=== PATIENT | male | born 1990 | race American Indian/Alaskan Native ===

== ENCOUNTER 2017-02-20 19:24 | Inpatient (IN) | payer OTHER ==
--- NOTE | 2017-02-20 21:08 | C.PDOC ---
History Of Present Illness Patient presents to the ER with a complaint of a RUQ pressure/squeezing pain for the past 3 days that radiates to the lower back, associated with a subjective fever. Patient states eating and drinking worsens the pain but the pain is the worse when he does not eat or drink; he came in today because he felt he could not tolerate water. Prior to onset of symptoms, patient was having 4-5 episodes of diarrhea a day. Patient also notes he had some blood streaked stool this morning. Denies nausea, vomiting, SOB, or chest pain. Time Seen by Provider: 02/20/17 21:08 Chief Complaint (Nursing): Abdominal Pain History Per: Patient History/Exam Limitations: no limitations Onset/Duration Of Symptoms: Days Current Symptoms Are (Timing): Still Present Context: Other Severity: Moderate Pain Scale Rating Of: 4 Location Of Pain/Discomfort: RUQ Radiation Of Pain To:: None Quality Of Discomfort: Pressure, Other (Squeezing) Associated Symptoms: Fever (Subjective). denies: Nausea, Vomiting, Chest Pain, Other (SOB) Exacerbating Factors: None Alleviating Factors: None Recent travel outside of the [place]: No Additional History Per: Patient Past Medical History Reviewed: Historical Data, Nursing Documentation, Vital Signs Vital Signs: Last Vital Signs Temp 99.7 F H 02/20/17 19:45 Pulse 87 02/20/17 19:45 Resp 16 02/20/17 19:45 BP 124/80 02/20/17 19:45 Pulse Ox 97 02/20/17 22:12 - Medical History PMH: Asthma Family History: States: No Known Family Hx - Social History Hx Alcohol Use: Yes Hx Substance Use: Yes - Immunization History Hx Tetanus Toxoid Vaccination: No Hx Influenza Vaccination: No Hx Pneumococcal Vaccination: No Review Of Systems Constitutional: Positive for: Fever (Subjective). Negative for: Chills Cardiovascular: Negative for: Chest Pain Respiratory: Negative for: Shortness of Breath Gastrointestinal: Positive for: Other (blood streaked stools). Negative for: Nausea, Vomiting Physical Exam - Physical Exam Appears: Non-toxic, No Acute Distress Skin: Warm, Dry Head: Normacephalic Eye(s): bilateral: Normal Inspection Oral Mucosa: Moist Neck: Supple Chest: Symmetrical, No Tenderness Cardiovascular: Rhythm Regular Respiratory: No Rales, No Rhonchi, No Wheezing Gastrointestinal/Abdominal: Soft, Tenderness (Bilateral upper quadrant, more to right), No Guarding, No Rebound Rectal: Normal Exam, No Heme Positive, Heme Negative, Maroon Stool, No Hemorrhoids, Other (No fissures) Back: Normal Inspection Extremity: Normal ROM Extremity: Bilateral: Atraumatic, Normal Color And Temperature Pulses: Left Dorsalis Pedis: Normal, Right Dorsalis Pedis: Normal Neurological/Psych: Oriented x3 Gait: Steady ED Course And Treatment - Laboratory Results Result Diagrams: 02/20/17 21:49 02/20/17 21:49 O2 Sat by Pulse Oximetry: 97 (Room air) Pulse Ox Interpretation: Normal Progress Note: Blood work and urinalysis ordered. Pepcid and toradol administered. Disposition Discussed With Dr.: Ariel Lipscomb Comment: accepted the pt onhis service and took over the care at 12:21 am Doctor Will See Patient In The: ED Counseled Patient/Family Regarding: Studies Performed, Diagnosis - Disposition Disposition: HOSPITALIZED Disposition Time: 21:08 Condition: FAIR Forms: [employer] (I[place]ic) - POA Present On Arrival: None - Clinical Impression Clinical Impression: Abdominal pain, Acute pancreatitis - Scribe Statement The provider has reviewed the documentation as recorded by the Scribe Thang Engel All medical record entries made by the Scribe were at my direction and personally dictated by me. I have reviewed the chart and agree that the record accurately reflects my personal performance of the history, physical exam, medical decision making, and the department course for this patient. I have also personally directed, reviewed, and agree with the discharge instructions and disposition. Decision To Admit - Pt Status Changed To: Hospital Disposition Of: Inpatient - Admit Certification Admit to Inpatient:: After my assessment, the patient will require hospitalization for at least two midnights. This is because of the severity of symptoms shown, intensity of services needed, and/or the medical risk in this patient being treated as an outpatient. - InPatient: Physician Admission Certification:: After my assessment, the patient will require hospitalization for at least two midnights. This is because of the severity of symptoms shown, intensity of services needed, and/or the medical risk in this patient being treated as an outpatient. - . Bed Request Type: Regular Admitting Physician: Ariel Lipscomb Patient Diagnosis: Abdominal pain, Acute pancreatitis
[2017-02-20 21:58] LABS: BASO % 0.2 % (0.0-2.0); EOS # 0.1 K/uL (0.0-0.7); EOS % 1.5 % (0.0-4.0); LYMPH # 1.1 K/uL (1.0-4.3); LYMPH % 14.6 % (20.0-40.0); MEAN CELL VOLUME 79.5 fL (80.0-94.0); MEAN CORPUSCULAR HEMOGLOBIN 27.6 pg (27.0-31.0); MEAN CORPUSCULAR HGB CONC 34.7 g/dL (33.0-37.0); MEAN PLATELET VOLUME 8.5 fL (7.2-11.7); MONO # 1.1 K/uL (0.0-0.8); MONO % 14.3 % (0.0-10.0); NEUT # 5.4 K/uL (1.8-7.0); NEUT % 69.4 % (50.0-75.0); RBC 5.07 Mil/uL (4.40-5.90); RED CELL DISTRIBUTION WIDTH 14.1 % (11.5-14.5); WHITE BLOOD COUNT 7.8 K/uL (4.8-10.8)
[2017-02-20 22:05] LABS: INR 1.2; PROTHROMBIN TIME 13.3 SECONDS (9.7-12.2)
[2017-02-20 22:11] LABS: ALBUMIN 4.2 g/dL (3.5-5.0); ALT/SGPT 125 U/L (21-72); AST/SGOT 88 U/L (17-59); BLOOD UREA NITROGEN 7 mg/dL (9-20); CALCIUM 8.6 mg/dl (8.6-10.4); GFR AFRICAN-AMERICAN > 60; GFR NON-AFRICAN AMERICAN > 60; LIPASE 875 U/L (23-300)
[2017-02-20] MEDS ORDERED: Iohexol 300 100 ML IJ ONE (22:29)
--- NOTE | 2017-02-20 23:30 | CT ---
EXAM: CT Abdomen and Pelvis With Intravenous Contrast CLINICAL HISTORY: 26 years old, male; Pain; Abdominal pain; Additional info: Abd pain, elevated lipase and liver enz TECHNIQUE: Axial computed tomography images of the abdomen and pelvis with intravenous contrast. All CT scans at this facility use one or more dose reduction techniques, viz.: automated exposure control; ma/kV adjustment per patient size (including targeted exams where dose is matched to indication; i.e. head); or iterative reconstruction technique. Coronal and sagittal reformatted images were created and reviewed. CONTRAST: 100 mL of [id number] administered intravenously. COMPARISON: No relevant prior studies available. FINDINGS: Lower thorax: Minimal atelectasis/scarring. ABDOMEN: Liver: Unremarkable. No mass. Gallbladder and bile ducts: No calcified stones. No ductal dilation. Pancreas: Mild stranding about pancreas. No definite pancreatic necrosis. No discrete peripancreatic collection. Spleen: No splenomegaly. Adrenals: No mass. Kidneys and ureters: No mass. No hydronephrosis. Stomach and bowel: No definite mural thickening. No obstruction. Appendix: Normal caliber. No inflammation. PELVIS: Bladder: Unremarkable. Reproductive: Unremarkable as visualized. ABDOMEN and PELVIS: Intraperitoneal space: No significant fluid collection. No free air. Bones/joints: No acute fracture. Soft tissues: Tiny umbilical hernia containing fat. Vasculature: Patent splenic artery and vein. No aneurysm. Lymph nodes: Several subcentimeter short axis mesenteric lymph nodes, nonspecific. IMPRESSION: 1. Acute pancreatitis. 2. Incidental/non-acute findings are described above.
[2017-02-21] MEDS: Sodium Chloride 0.9% 1,000 ML IV SCH ×6 (01:53→21:46)
--- NOTE | 2017-02-21 02:57 | CP.PCM.HP ---
<Addy Zepeda - Last Filed: 02/21/17 04:38> History of Present Illness - History of Present Illness History of Present Illness: PGY-1 H&P for Dr. Lipscomb CC: "abdominal pain" This is a 26 year old male with no significant PMHx who presents complaining of abdominal pain. It is described as a pressure in the epigastric region that radiates to the right upper quadrant. It began on Sunday and has progressively worsened since then. Pain is exacerbated after eating or drinking. As a result, he does not have an appetite currently. Denies relieving factors besides avoidance of anything by mouth. Patient states that for a few days before the pain started, he was having episodes of loose stools 4-5 times per day. Since the onset of pain, patient has now been experiencing constipation. Last BM was yesterday morning described as mucoid with bits of dark red tinged in it. Patient enjoys eating spicy foods whenever he can. Patient denies regularly taking aspirin or NSAIDs. PMHx: Left MCL tear PSHx: denies Allergies: shellfish Social: Former smoker smoking 1 cigar daily for 7 years. Quit 1 year prior. Social drinker about once a month. Smokes marijuana 3-4 times weekly. Family Hx: Diabetes in the extended family Denies PMD or home meds. Present on Admission - Present on Admission Any Indicators Present on Admission: No Review of Systems - Constitutional Constitutional: absent: Chills, Fever - EENT Eyes: absent: Change in Vision Ears: absent: Decreased Hearing Nose/Mouth/Throat: absent: Nasal Congestion - Cardiovascular Cardiovascular: absent: Chest Pain - Respiratory Respiratory: absent: Cough, Dyspnea - Gastrointestinal Gastrointestinal: Abdominal Pain (as per HPI), Bloating, Constipation, Other ( tinges of dark red in his stool). absent: Diarrhea, Nausea, Vomiting - Musculoskeletal Musculoskeletal: absent: Back Pain - Integumentary Integumentary: absent: Rash - Neurological Neurological: absent: Dizziness, Weakness - Psychiatric Psychiatric: absent: Anxiety - Endocrine Endocrine: absent: Fatigue, Palpitations Past Patient History - Past Social History Smoking Status: Former Smoker - PULMONARY Hx Asthma: Yes - PSYCHIATRIC Hx Substance Use: Yes - SURGICAL HISTORY Hx Surgeries: No - ANESTHESIA Hx Anesthesia: No Meds Allergies/Adverse Reactions: Allergies Allergy/AdvReac Type Severity Reaction Status Date / Time shellfish derived Allergy Verified 02/20/17 19:50 Physical Exam - Constitutional Appears: No Acute Distress - Head Exam Head Exam: ATRAUMATIC, NORMOCEPHALIC - Eye Exam Eye Exam: EOMI, PERRL - ENT Exam ENT Exam: Mucous Membranes Moist - Respiratory Exam Respiratory Exam: Clear to Auscultation Bilateral. absent: Rales, Rhonchi, Wheezes - Cardiovascular Exam Cardiovascular Exam: REGULAR RHYTHM, +S1, +S2 - GI/Abdominal Exam GI & Abdominal Exam: Normal Bowel Sounds, Soft, Tenderness (mild tenderness in the epigastric region). absent: Firm, Guarding Additional comments: Weakly positive Hernandez's sign elicited - Extremities Exam Extremities exam: Positive for: pedal pulses present. Negative for: pedal edema , tenderness - Neurological Exam Neurological exam: Alert, CN II-XII Intact, Oriented x3 - Psychiatric Exam Psychiatric exam: Normal Affect, Normal Mood - Skin Skin Exam: Dry, Intact, Normal Color, Warm Results - Vital Signs Recent Vital Signs: Last Vital Signs Temp 98.4 F 02/21/17 01:51 Pulse 83 02/21/17 01:51 Resp 20 02/21/17 01:51 BP 139/79 02/21/17 01:51 Pulse Ox 97 02/21/17 01:51 - Labs Result Diagrams: 02/20/17 21:49 02/20/17 21:49 Labs: Laboratory Results - last 24 hr 02/20/17 02/20/17 02/20/17 21:49 21:49 21:49 WBC 7.8 RBC 5.07 Hgb 14.0 Hct 40.3 MCV 79.5 L MCH 27.6 MCHC 34.7 RDW 14.1 Plt Count 358 MPV 8.5 Neut % (Auto) 69.4 Lymph % (Auto) 14.6 L Pope % (Auto) 14.3 H Eos % (Auto) 1.5 Baso % (Auto) 0.2 Neut # 5.4 Lymph # 1.1 Pope # 1.1 H Eos # 0.1 Baso # 0.0 PT 13.3 H INR 1.2 APTT 34 Sodium 134 Potassium 3.6 Chloride 99 Carbon Dioxide 25 Anion Gap 13 BUN 7 L Creatinine 0.9 Est GFR ( Amer) > 60 Est GFR (Non-Af Amer) > 60 Random Glucose 95 Calcium 8.6 Total Bilirubin 1.0 AST 88 H ALT 125 H Alkaline Phosphatase 207 H Total Protein 8.6 H Albumin 4.2 Globulin 4.3 H Albumin/Globulin Ratio 1.0 Lipase 875 H Stool Occult Blood 02/20/17 21:49 WBC RBC Hgb Hct MCV MCH MCHC RDW Plt Count MPV Neut % (Auto) Lymph % (Auto) Pope % (Auto) Eos % (Auto) Baso % (Auto) Neut # Lymph # Pope # Eos # Baso # PT INR APTT Sodium Potassium Chloride Carbon Dioxide Anion Gap BUN Creatinine Est GFR ( Amer) Est GFR (Non-Af Amer) Random Glucose Calcium Total Bilirubin AST ALT Alkaline Phosphatase Total Protein Albumin Globulin Albumin/Globulin Ratio Lipase Stool Occult Blood Negative Assessment & Plan - Assessment and Plan (Free Text) Plan: Acute Pancreatitis As evidenced by stranding around the pancreas in Abdominal CT as well as elevated lipase. Although stones were not seen on CT scan, suspicion prompted ordering an abdominal ultrasound to assess NPO for now Aggressive Hydration NS 250cc/hr f/u Lipid panel Per Hortense's criteria on admission, severe pancreatitis unlikely, 1% predicted mortality. Per patient, he has been having dark red tinged stools intermittently. For this reason, despite stool occult negative, we elected not to use IV NSAIDs and instead started on Morphine 1 mg IV Q6 prn pain. f/u repeat stool occult blood Prophylactic Measure Pepcid 20 mg IV BID SCDs Case DW Dr. Deisi Zepeda PGY-1 <Ariel Lipscomb - Last Filed: 02/21/17 06:23> Results - Vital Signs Recent Vital Signs: Last Vital Signs Temp 98.4 F 02/21/17 01:51 Pulse 83 02/21/17 01:51 Resp 20 02/21/17 01:51 BP 139/79 02/21/17 01:51 Pulse Ox 97 02/21/17 01:51 - Labs Result Diagrams: 02/20/17 21:49 02/20/17 21:49 Labs: Laboratory Results - last 24 hr 02/20/17 02/20/17 02/20/17 21:49 21:49 21:49 WBC 7.8 RBC 5.07 Hgb 14.0 Hct 40.3 MCV 79.5 L MCH 27.6 MCHC 34.7 RDW 14.1 Plt Count 358 MPV 8.5 Neut % (Auto) 69.4 Lymph % (Auto) 14.6 L Pope % (Auto) 14.3 H Eos % (Auto) 1.5 Baso % (Auto) 0.2 Neut # 5.4 Lymph # 1.1 Pope # 1.1 H Eos # 0.1 Baso # 0.0 PT 13.3 H INR 1.2 APTT 34 Sodium 134 Potassium 3.6 Chloride 99 Carbon Dioxide 25 Anion Gap 13 BUN 7 L Creatinine 0.9 Est GFR ( Amer) > 60 Est GFR (Non-Af Amer) > 60 Random Glucose 95 Calcium 8.6 Total Bilirubin 1.0 AST 88 H ALT 125 H Alkaline Phosphatase 207 H Total Protein 8.6 H Albumin 4.2 Globulin 4.3 H Albumin/Globulin Ratio 1.0 Lipase 875 H Stool Occult Blood 02/20/17 21:49 WBC RBC Hgb Hct MCV MCH MCHC RDW Plt Count MPV Neut % (Auto) Lymph % (Auto) Pope % (Auto) Eos % (Auto) Baso % (Auto) Neut # Lymph # Pope # Eos # Baso # PT INR APTT Sodium Potassium Chloride Carbon Dioxide Anion Gap BUN Creatinine Est GFR ( Amer) Est GFR (Non-Af Amer) Random Glucose Calcium Total Bilirubin AST ALT Alkaline Phosphatase Total Protein Albumin Globulin Albumin/Globulin Ratio Lipase Stool Occult Blood Negative Assessment & Plan - Date & Time Date: 02/21/17 (I have seen and examined the patient. I agree with the findings and plan of care as documented by Dr. Zepeda. Patient with acute pancreatitis. NPO. IVF. Symptomatic treatment. Monitor for acute changes.) Time: 06:22 Attending/Attestation - Attestation I have personally seen and examined this patient.: Yes I have fully participated in the care of the patient.: Yes I have reviewed all pertinent clinical information: Yes
--- NOTE | 2017-02-21 08:36 | US ---
HISTORY: r/o gallstones COMPARISON: None. TECHNIQUE: Sonographic evaluation of the abdomen. FINDINGS: LIVER: Measures 16.0 cm. Diffusely increased echogenicity of the liver parenchyma. Consistent with fatty infiltration. No focal mass. Smooth contour. No biliary dilatation. GALLBLADDER: Unremarkable. No gallstones. COMMON BILE DUCT: Measures 3 mm. No stones. No dilatation. PANCREAS: Unremarkable as visualized. No mass. No ductal dilatation. RIGHT KIDNEY: Measures 10.7cm. Normal echogenicity. No calculus, mass, or hydronephrosis. LEFT KIDNEY: Measures 10.9cm. Normal echogenicity. No calculus, mass, or hydronephrosis. SPLEEN: Normal in size and contour. No mass. AORTA: No aneurysmal dilatation. IVC: Unremarkable. OTHER FINDINGS: None. IMPRESSION: Fatty liver. No evidence of cholelithiasis or cholecystitis.
[2017-02-21 09:28] LABS: BASO % 0.3 % (0.0-2.0); EOS # 0.1 K/uL (0.0-0.7); EOS % 1.7 % (0.0-4.0); HEMOGLOBIN 12.5 g/dL (12.0-18.0); LYMPH % 15.5 % (20.0-40.0); MEAN CELL VOLUME 80.7 fL (80.0-94.0); MEAN CORPUSCULAR HEMOGLOBIN 27.2 pg (27.0-31.0); MEAN CORPUSCULAR HGB CONC 33.7 g/dL (33.0-37.0); MEAN PLATELET VOLUME 8.6 fL (7.2-11.7); MONO % 15.4 % (0.0-10.0); NEUT # 4.4 K/uL (1.8-7.0); NEUT % 67.1 % (50.0-75.0); RBC 4.59 Mil/uL (4.40-5.90); RED CELL DISTRIBUTION WIDTH 13.5 % (11.5-14.5); WHITE BLOOD COUNT 6.5 K/uL (4.8-10.8)
[2017-02-21 10:02] LABS: ALBUMIN 3.6 g/dL (3.5-5.0); ALT/SGPT 94 U/L (21-72); AST/SGOT 57 U/L (17-59); BLOOD UREA NITROGEN 8 mg/dL (9-20); CALCIUM 8.1 mg/dl (8.6-10.4); GFR AFRICAN-AMERICAN > 60; GFR NON-AFRICAN AMERICAN > 60; HDL CHOLESTEROL 30 mg/dL (30-70)
[2017-02-21 10:16] LABS: LDL CHOLESTEROL 112 mg/dL (0-129)
[2017-02-21 10:38] LABS: HEPATITIS B SURFACE AG NEGATIVE (NEGATIVE)
[2017-02-21 10:43] LABS: HEPATITIS A IGM NEGATIVE (NEGATIVE); HEPATITIS B CORE AB Negative (NEGATIVE)
[2017-02-21 10:55] LABS: HEPATITIS C ANTIBODY Negative (NEGATIVE)
--- NOTE | 2017-02-21 16:00 | CP.PCM.PN ---
<Corine Leonardo - Last Filed: 02/21/17 17:08> Subjective - Date & Time of Evaluation Date of Evaluation: 02/21/17 Time of Evaluation: 17:08 - Subjective Subjective: Patient seen and examined. Denies fevers or chills. patient states abdominal pain has improved. Has small appetite Objective - Vital Signs/Intake and Output Vital Signs (last 24 hours): Temp Pulse Resp BP Pulse Ox 98.3 F 83 20 115/72 98 02/21/17 08:28 02/21/17 08:28 02/21/17 08:28 02/21/17 08:28 02/21/17 08:28 Intake and Output: 02/21/17 02/21/17 06:59 18:59 Intake Total 3500 Balance 3500 - Medications Medications: Current Medications Famotidine (Pepcid) 20 mg IVP Q12 [facility] Last Admin: 02/21/17 09:43 Dose: 20 mg Sodium Chloride (Sodium Chloride 0.9%) 1,000 mls @ 250 mls/hr IV .Q4H [facility] Last Admin: 02/21/17 14:13 Dose: 250 mls/hr Morphine Sulfate (Morphine) 1 mg IV Q6 PRN PRN Reason: Pain, severe (8-10) - Labs Labs: 02/21/17 09:19 02/21/17 09:19 PT 13.3 SECONDS (9.7-12.2) H 02/20/17 21:49 INR 1.2 02/20/17 21:49 APTT 34 SECONDS (21-34) 02/20/17 21:49 - Constitutional Appears: Well, Non-toxic, No Acute Distress - Head Exam Head Exam: ATRAUMATIC, NORMAL INSPECTION, NORMOCEPHALIC - Eye Exam Eye Exam: EOMI, Normal appearance - ENT Exam ENT Exam: Mucous Membranes Moist - Respiratory Exam Respiratory Exam: Clear to Ausculation Bilateral, NORMAL BREATHING PATTERN. absent: Rales, Rhonchi, Wheezes - Cardiovascular Exam Cardiovascular Exam: RRR, +S1, +S2 - GI/Abdominal Exam GI & Abdominal Exam: Soft, Tenderness (Epigastric and RUQ), Normal Bowel Sounds. absent: Bruit, Distended, Firm, Guarding, Rigid, Organomegaly - Extremities Exam Extremities Exam: Normal Capillary Refill. absent: Pedal Edema - Neurological Exam Neurological Exam: Alert, Oriented x3 - Psychiatric Exam Psychiatric exam: Normal Affect, Normal Mood - Skin Skin Exam: Dry, Intact, Normal Color, Warm Assessment and Plan - Assessment and Plan (Free Text) Assessment: 26 year old with no pertieent PMHx admitted for evaluation and treatment of Acute Pancreatitis. Plan: Acute Pancreatitis CT Abd/Pelvis (02/21/16): Acute pancreaitis and small umbilical hernia Abd US (02/22/16): Fatty Liver NPO for now. Advance diet as tolerated Aggressive Hydration NS 250cc/hr Lipid Panel - WNL Per Nasreen's criteria on admission, severe pancreatitis unlikely, 1% predicted mortality. Morphine 1 mg IV Q6 prn pain. f/u repeat stool occult blood: PENDING Consider Rectal Exam although done in E.R Blood in Stool -Rectal Exam performed in ED. Exam was Normal -Consider Repeat Rectal -F/U on repeat Stool Occult Blood Prophylactic Measure Pepcid 20 mg IV BID SCDs Case DW Dr. Cindy Leonardo- PGY-1 <Jessica White V - Last Filed: 02/21/17 23:26> Objective - Vital Signs/Intake and Output Vital Signs (last 24 hours): Temp Pulse Resp BP Pulse Ox 98.4 F 88 20 135/74 97 02/21/17 16:00 02/21/17 16:00 02/21/17 16:00 02/21/17 16:00 02/21/17 16:00 Intake and Output: 02/21/17 02/22/17 18:59 06:59 Intake Total 3500 2000 Output Total 700 Balance 3500 1300 - Medications Medications: Current Medications Famotidine (Pepcid) 20 mg IVP Q12 [facility] Last Admin: 02/21/17 21:31 Dose: 20 mg Sodium Chloride (Sodium Chloride 0.9%) 1,000 mls @ 250 mls/hr IV .Q4H [facility] Last Admin: 02/21/17 21:46 Dose: 250 mls/hr Lidocaine (Lidoderm) 1 ea TD Q24H [facility] Last Admin: 02/21/17 21:44 Dose: 1 ea Morphine Sulfate (Morphine) 1 mg IV Q6 PRN PRN Reason: Pain, severe (8-10) Last Admin: 02/21/17 18:00 Dose: 1 mg - Labs Labs: 02/21/17 09:19 02/21/17 09:19 PT 13.3 SECONDS (9.7-12.2) H 02/20/17 21:49 INR 1.2 02/20/17 21:49 APTT 34 SECONDS (21-34) 02/20/17 21:49 Attending/Attestation - Attestation I have personally seen and examined this patient.: Yes I have fully participated in the care of the patient.: Yes I have reviewed all pertinent clinical information, including history, physical exam and plan: Yes Notes (Text): Patient seen, examined and case discussed with day-time resident. Patient reports he has had abdominal pain since Sunday, which he reports was 10/ 10, but today pain is 5/10. Patient reports he occasional drinks, about Xmas he drank one beer and 2 shots of liquor, he eats take out food mainly from [employer], and he has been taking Motrin over the counter. Patient denies family history of colon cancer. Patient reports nausea is better. Patient reports when he went to bathroom today, stool appeared yellow/green/brown but denies any BRBPR. Patient reports he noticed his stool has redness to it about a week ago. Patient reports he was drinking fruit punch. I advised patient to ask the nurse next time he goes to check what his stool looks like. Assessment/Plan 1) Acute Pancreatitis * Ransons Criteria: 0 * CT Abd/Pelvis (02/21/16): Acute pancreatitis and small umbilical hernia * Abd US (02/22/16): Fatty Liver; no gallstones noted * NPO for now. Advance diet as tolerated * Aggressive Hydration NS 250cc/hr * Lipid Panel - WNL * Morphine 1 mg IV Q6 prn pain. * f/u repeat stool occult blood: PENDING * Note: patient did have rectal exam performed day of admission by ED staff. Patient does not need repeat rectal. Order for stool occult blood X3 2) Blood in Stool * Rectal Exam performed in ED. Exam was Normal * H/H is stable * stool occult blood 02/20/17: negative * Pending stool cultures 3) Transaminitis * Abdominal US completed * LFTS are downtrending * Hepatitis panel: negative 4) Prophylactic Measure * Pepcid 20 mg IV BID * SCDs * IV fluids * NPO and advance when tolerates
[2017-02-21] MEDS ORDERED: Lidocaine 5% Patch TD SCH ×2 (20:56→21:00)
[2017-02-21] MEDS: Lidocaine 5% Patch TD SCH (21:44)
[2017-02-21 22:53] LABS: URINE BILIRUBIN NEGATIVE (NEGATIVE); URINE BLOOD NEGATIVE (NEGATIVE); URINE CLARITY Clear (Clear); URINE COLOR Yellow (YELLOW); URINE GLUCOSE (UA) 1+ mg/dL (Normal); URINE LEUKOCYTE ESTERASE NEG Leu/uL (Negative); URINE NITRATE NEGATIVE (NEGATIVE); URINE PROTEIN 2+ mg/dL (NEGATIVE); URINE UROBILINOGEN NORMAL mg/dL (0.2-1.0)
[2017-02-22] MEDS: Sodium Chloride 0.9% 1,000 ML IV SCH ×5 (02:48→16:00)
[2017-02-22 07:46] LABS: BASO % 0.5 % (0.0-2.0); EOS # 0.1 K/uL (0.0-0.7); EOS % 1.1 % (0.0-4.0); HEMOGLOBIN 12.4 g/dL (12.0-18.0); LYMPH # 0.9 K/uL (1.0-4.3); LYMPH % 11.5 % (20.0-40.0); MEAN CORPUSCULAR HEMOGLOBIN 27.4 pg (27.0-31.0); MEAN CORPUSCULAR HGB CONC 34.2 g/dL (33.0-37.0); MEAN PLATELET VOLUME 8.5 fL (7.2-11.7); MONO # 1.2 K/uL (0.0-0.8); MONO % 16.1 % (0.0-10.0); NEUT # 5.5 K/uL (1.8-7.0); NEUT % 70.8 % (50.0-75.0); RBC 4.51 Mil/uL (4.40-5.90); RED CELL DISTRIBUTION WIDTH 13.7 % (11.5-14.5); WHITE BLOOD COUNT 7.7 K/uL (4.8-10.8)
[2017-02-22 08:30] LABS: ALBUMIN 3.7 g/dL (3.5-5.0); ALT/SGPT 78 U/L (21-72); AST/SGOT 44 U/L (17-59); BLOOD UREA NITROGEN 5 mg/dL (9-20); CALCIUM 8.2 mg/dl (8.6-10.4); GFR AFRICAN-AMERICAN > 60; GFR NON-AFRICAN AMERICAN > 60; LIPASE 1494 U/L (23-300); MAGNESIUM 1.8 mg/dL (1.6-2.3)
[2017-02-22] MEDS ORDERED: Lidocaine 5% Patch TD SCH (10:00)
--- NOTE | 2017-02-22 12:12 | CP.PCM.PN ---
<PanchojudyJeremíassuzie - Last Filed: 02/22/17 12:08> Subjective - Date & Time of Evaluation Date of Evaluation: 02/22/17 Time of Evaluation: 12:08 - Subjective Subjective: Patient has been seen and examined. No overnight events reported. Had bowel movement this morning. Denies Fever, nausea, or vomiting. States that stomach pain has reduced. Objective - Vital Signs/Intake and Output Vital Signs (last 24 hours): Temp Pulse Resp BP Pulse Ox 98.1 F 79 20 132/79 98 02/22/17 08:00 02/22/17 08:00 02/22/17 08:00 02/22/17 08:00 02/22/17 08:00 Intake and Output: 02/22/17 02/22/17 06:59 18:59 Intake Total 4000 Output Total 700 Balance 3300 - Medications Medications: Current Medications Famotidine (Pepcid) 20 mg IVP Q12 [facility] Last Admin: 02/22/17 09:39 Dose: 20 mg Sodium Chloride (Sodium Chloride 0.9%) 1,000 mls @ 250 mls/hr IV .Q4H [facility] Last Admin: 02/22/17 11:37 Dose: 250 mls/hr Lidocaine (Lidoderm) 1 ea TD Q24H [facility] Last Admin: 02/21/17 21:44 Dose: 1 ea Morphine Sulfate (Morphine) 1 mg IV Q6 PRN PRN Reason: Pain, severe (8-10) Last Admin: 02/22/17 01:40 Dose: 1 mg - Labs Labs: 02/22/17 07:39 02/22/17 07:39 PT 13.3 SECONDS (9.7-12.2) H 02/20/17 21:49 INR 1.2 02/20/17 21:49 APTT 34 SECONDS (21-34) 02/20/17 21:49 - Additional Findings Additional findings: - Constitutional Appears: Well, Non-toxic, No Acute Distress - Head Exam Head Exam: ATRAUMATIC, NORMAL INSPECTION, NORMOCEPHALIC - Eye Exam Eye Exam: EOMI, Normal appearance - ENT Exam ENT Exam: Mucous Membranes Moist - Respiratory Exam Respiratory Exam: Clear to Ausculation Bilateral, NORMAL BREATHING PATTERN. absent: Rales, Rhonchi, Wheezes - Cardiovascular Exam Cardiovascular Exam: RRR, +S1, +S2 - GI/Abdominal Exam GI & Abdominal Exam: Soft, Tenderness (Improved-Epigastric and RUQ), Normal Bowel Sounds. absent: Bruit, Distended, Firm, Guarding, Rigid, Organomegaly - Extremities Exam Extremities Exam: Normal Capillary Refill. absent: Pedal Edema - Neurological Exam Neurological Exam: Alert, Oriented x3 - Psychiatric Exam Psychiatric exam: Normal Affect, Normal Mood - Skin Skin Exam: Dry, Intact, Normal Color, Warm Assessment and Plan - Assessment and Plan (Free Text) Assessment: 26 year old with no pertieent PMHx admitted for evaluation and treatment of Acute Pancreatitis. Plan: Acute Pancreatitis CT Abd/Pelvis (02/21/16): Acute pancreaitis and small umbilical hernia Abd US (02/22/16): Fatty Liver Advance to diet to CLD Aggressive Hydration NS 250cc/hr if patient tolerates CLD reduce to 100mls/hr. Lipid Panel - WNL Per Nasreen's criteria on admission, severe pancreatitis unlikely, 1% predicted mortality. Morphine 1 mg IV Q6 prn pain. f/u repeat stool occult blood: Positive Patient has stable H/H. May need Outpatient colonoscopy. Consider Rectal Exam although done in E.R Hep Panel - NEGATIVE Stool C.Diff - NEGATIVE Blood in Stool -Rectal Exam performed in ED. Exam was Normal -Consider Repeat Rectal -F/U on repeat Stool Occult Blood Prophylactic Measure Pepcid 20 mg IV BID SCDs Case DW Dr. Cindy Leonardo- PGY-1 <Jessica White V - Last Filed: 02/22/17 13:04> Objective - Vital Signs/Intake and Output Vital Signs (last 24 hours): Temp Pulse Resp BP Pulse Ox 98.1 F 79 20 132/79 98 02/22/17 08:00 02/22/17 08:00 02/22/17 08:00 02/22/17 08:00 02/22/17 08:00 Intake and Output: 02/22/17 02/22/17 06:59 18:59 Intake Total 4000 Output Total 700 Balance 3300 - Medications Medications: Current Medications Famotidine (Pepcid) 20 mg IVP Q12 [facility] Last Admin: 02/22/17 09:39 Dose: 20 mg Sodium Chloride (Sodium Chloride 0.9%) 1,000 mls @ 250 mls/hr IV .Q4H [facility] Last Admin: 02/22/17 11:37 Dose: 250 mls/hr Lidocaine (Lidoderm) 1 ea TD Q24H [facility] Last Admin: 02/21/17 21:44 Dose: 1 ea Morphine Sulfate (Morphine) 1 mg IV Q6 PRN PRN Reason: Pain, severe (8-10) Last Admin: 02/22/17 01:40 Dose: 1 mg - Labs Labs: 02/22/17 07:39 02/22/17 07:39 PT 13.3 SECONDS (9.7-12.2) H 02/20/17 21:49 INR 1.2 02/20/17 21:49 APTT 34 SECONDS (21-34) 02/20/17 21:49 Attending/Attestation - Attestation I have personally seen and examined this patient.: Yes I have fully participated in the care of the patient.: Yes I have reviewed all pertinent clinical information, including history, physical exam and plan: Yes Notes (Text): Patient seen, examined, case discussed with medical stenographer. Patient reports abdominal pain has improved to now 3 of 10 on pain scale. Patient reports yesterday he had some burping and was able to use the bathroom and reports stool in the evening was brown colored but no bright red blood per rectum. Vitals are stable. Patient would like to eat. We'll attempt to advance diet to clears today and see how patient tolerates. Patient does have positive stool occult blood. Hemoglobin remained stable. I have spoken with the patient he is aware that she will likely need outpatient colonoscopy given that he is having positive stool occult blood. Patient is advised to not take anything like NSAID such as naproxen for abdominal pain or to have any excessive alcohol use. Because those seen scaly toe ulcers which can bleed. Patient was also educated to engage in home cooking given that his stomach was also bothered by food and takeout restaurant such as [employer]. Liver function tests are slowly down trending. Patient is for possible discharge tomorrow if tolerates diet. Assessment/Plan 1) Acute Pancreatitis * Ransons Criteria: 0 * CT Abd/Pelvis (02/21/16): Acute pancreatitis and small umbilical hernia * Abd US (02/22/16): Fatty Liver; no gallstones noted * NPO for now. Advance diet as tolerated * Aggressive Hydration NS 250cc/hr * Lipid Panel - WNL * Morphine 1 mg IV Q6 prn pain. * Note: patient did have rectal exam performed day of admission by ED staff. Patient does not need repeat rectal. Order for stool occult blood X3 2) Blood in Stool * Rectal Exam performed in ED. Exam was Normal * H/H is stable * stool occult blood 02/20/17: negative * Stool occult blood 02/21/17: positive * H/H remains stable * Patient recommended for outpatient colonoscopy. * Pending stool cultures 3) Transaminitis * Abdominal US completed * LFTS are downtrending * Hepatitis panel: negative 4) Prophylactic Measure * Pepcid 20 mg IV BID * SCDs * IV fluids * start liquids and see if patient tolerates diet.
[2017-02-22] MEDS ORDERED: Pneumococcal 23-Valent Vaccine IM ONE (15:10)
[2017-02-22] MEDS: Lidocaine 5% Patch TD SCH (22:34)
[2017-02-23] MEDS: Sodium Chloride 0.9% 1,000 ML IV SCH ×4 (01:45→23:30)
[2017-02-23] MEDS: Lidocaine 5% Patch TD SCH ×2 (05:47→21:49)
[2017-02-23 07:38] LABS: BASO % 0.4 % (0.0-2.0); EOS # 0.1 K/uL (0.0-0.7); EOS % 1.8 % (0.0-4.0); HEMOGLOBIN 12.4 g/dL (12.0-18.0); LYMPH # 1.4 K/uL (1.0-4.3); LYMPH % 22.9 % (20.0-40.0); MEAN CELL VOLUME 80.2 fL (80.0-94.0); MEAN CORPUSCULAR HEMOGLOBIN 27.3 pg (27.0-31.0); MEAN CORPUSCULAR HGB CONC 34.1 g/dL (33.0-37.0); MONO % 16.2 % (0.0-10.0); NEUT # 3.5 K/uL (1.8-7.0); NEUT % 58.7 % (50.0-75.0); NRBC % 0.2 % (0.0-2.0); RBC 4.55 Mil/uL (4.40-5.90); RED CELL DISTRIBUTION WIDTH 13.6 % (11.5-14.5)
[2017-02-23 08:24] LABS: ALBUMIN 3.4 g/dL (3.5-5.0); ALT/SGPT 108 U/L (21-72); AST/SGOT 93 U/L (17-59); BLOOD UREA NITROGEN 2 mg/dL (9-20); CALCIUM 8.3 mg/dl (8.6-10.4); GFR AFRICAN-AMERICAN > 60; GFR NON-AFRICAN AMERICAN > 60; LIPASE 1136 U/L (23-300); MAGNESIUM 1.8 mg/dL (1.6-2.3)
[2017-02-23] MEDS ORDERED: Influenza Vaccine 60 mcg/0.5 mL SYR (4YR UP) IM ONE (10:00)
--- NOTE | 2017-02-23 15:19 | CP.PCM.PN ---
<PanchojudyJeremíassuzie - Last Filed: 02/23/17 15:16> Subjective - Date & Time of Evaluation Date of Evaluation: 02/23/17 Time of Evaluation: 09:30 - Subjective Subjective: The patient is a 26 year old male with no pertinent PMHx who presented to the ED with abdominal pain. Patient was seen and examined. He had a bowel movement this morning. Patient reports that he still has abdominal/epigastric pain that comes and goes. The pain gets worse with hunger pains and with the feeling that he needs to burp. He rates the pain 2/10. Patient is tolerating a clear liquid diet and has no additional complaints. Objective - Vital Signs/Intake and Output Vital Signs (last 24 hours): Temp Pulse Resp BP Pulse Ox 98.4 F 63 20 129/77 97 02/23/17 08:00 02/23/17 08:00 02/23/17 08:00 02/23/17 08:00 02/23/17 08:00 Intake and Output: 02/23/17 02/23/17 06:59 18:59 Intake Total 2400 1500 Balance 2400 1500 - Medications Medications: Current Medications Famotidine (Pepcid) 20 mg IVP Q12 [facility] Last Admin: 02/23/17 10:04 Dose: 20 mg Sodium Chloride (Sodium Chloride 0.9%) 1,000 mls @ 150 mls/hr IV .Q6H40M [facility] Last Admin: 02/23/17 10:04 Dose: 150 mls/hr Lidocaine (Lidoderm) 1 ea TD Q24H [facility] Last Admin: 02/23/17 05:47 Dose: 1 ea Morphine Sulfate (Morphine) 1 mg IV Q6 PRN PRN Reason: Pain, severe (8-10) Last Admin: 02/22/17 01:40 Dose: 1 mg - Labs Labs: 02/23/17 06:16 02/23/17 06:16 PT 13.3 SECONDS (9.7-12.2) H 02/20/17 21:49 INR 1.2 02/20/17 21:49 APTT 34 SECONDS (21-34) 02/20/17 21:49 - Additional Findings Additional findings: - Constitutional Appears: Well, Non-toxic, No Acute Distress - Head Exam Head Exam: ATRAUMATIC, NORMAL INSPECTION, NORMOCEPHALIC - Eye Exam Eye Exam: EOMI, Normal appearance - ENT Exam ENT Exam: Mucous Membranes Moist - Respiratory Exam Respiratory Exam: Clear to Ausculation Bilateral, NORMAL BREATHING PATTERN. absent: Rales, Rhonchi, Wheezes - Cardiovascular Exam Cardiovascular Exam: RRR, +S1, +S2 - GI/Abdominal Exam GI & Abdominal Exam: Soft, Non-Tenderness (Intermittent) Normal Bowel Sounds. absent: Bruit, Distended, Firm, Guarding, Rigid, Organomegaly - Extremities Exam Extremities Exam: Normal Capillary Refill. absent: Pedal Edema - Neurological Exam Neurological Exam: Alert, Oriented x3 - Psychiatric Exam Psychiatric exam: Normal Affect, Normal Mood - Skin Skin Exam: Dry, Intact, Normal Color, Warm Assessment and Plan - Assessment and Plan (Free Text) Assessment: Patient is 26-year-old with no pertinent PMHx admitted for evaluation and treatment of acute pancreatitis. Plan: Acute pancreatitis Abdomen CT 02/20/17: Acute pancreatitis Abdomen Ultrasound 02/21/17: Fatty liver Hepatitis panel negative Stool C. Difficile negative Elevated lipase and liver enzymes Ransons Criteria: 0 Maintain clear liquid diet and advance diet as tolerated Aggressive hydration NS 150 mls/hr Morphine 1 mg IV Q6 PRN for pain Pending stool cultures Pepcid 20 mg IV BID Elevated LFT's increased fluids to 150 mls/hr Monitor Blood in stool Stool occult blood 02/20/17: negative Stool occult blood 02/21/17: positive Stable H/H Pending stool cultures Refer for outpatient colonoscopy Dispo: Likely will go home tomorrow. <Jessica White V - Last Filed: 02/24/17 07:51> Objective - Vital Signs/Intake and Output Vital Signs (last 24 hours): Temp Pulse Resp BP Pulse Ox 98.9 F 68 20 133/79 98 02/23/17 23:36 02/23/17 23:36 02/23/17 23:36 02/23/17 23:36 02/23/17 23:36 Intake and Output: 02/24/17 02/24/17 06:59 18:59 Intake Total 1400 Balance 1400 - Medications Medications: Current Medications Famotidine (Pepcid) 20 mg IVP Q12 [facility] Last Admin: 02/23/17 21:26 Dose: 20 mg Sodium Chloride (Sodium Chloride 0.9%) 1,000 mls @ 150 mls/hr IV .Q6H40M [facility] Last Admin: 02/24/17 07:06 Dose: 150 mls/hr Lidocaine (Lidoderm) 1 ea TD Q24H [facility] Last Admin: 02/23/17 21:49 Dose: 1 ea Morphine Sulfate (Morphine) 1 mg IV Q6 PRN PRN Reason: Pain, severe (8-10) Last Admin: 02/22/17 01:40 Dose: 1 mg - Labs Labs: 02/23/17 06:16 02/23/17 06:16 PT 13.3 SECONDS (9.7-12.2) H 02/20/17 21:49 INR 1.2 02/20/17 21:49 APTT 34 SECONDS (21-34) 02/20/17 21:49 Attending/Attestation - Attestation I have personally seen and examined this patient.: Yes I have fully participated in the care of the patient.: Yes I have reviewed all pertinent clinical information, including history, physical exam and plan: Yes Notes (Text): This is late computer entry for 02/23/2017. Patient seen, examined, and case discussed with certified medical records coder. Patient seen this morning. Patient quantifies abdominal pain at about a 2 out of 10 pain scale. He reports flatus and normal bowel movements. Patient reports this tolerated clear liquid. I discussed with patient at bedside his liver numbers are trending up will increase IV fluids and continue him on clear diet for another day and see how he is doing tomorrow. Plan is for possible discharge tomorrow given if improvement of liver enzymes.. Assessment/Plan 1) Acute Pancreatitis * Ransons Criteria: 0 * CT Abd/Pelvis (02/21/16): Acute pancreatitis and small umbilical hernia * Abd US (02/22/16): Fatty Liver; no evidence of cholelithiasis or cholecystitis * Continue with liquid diet * c/w NS 150cc/hr * Lipid Panel - WNL * Morphine 1 mg IV Q6 prn pain. * Note: patient did have rectal exam performed day of admission by ED staff. Patient does not need repeat rectal. 2) Blood in Stool * Rectal Exam performed in ED. Exam was Normal * H/H is stable * stool occult blood 02/20/17: negative * Stool occult blood 02/21/17: positive * H/H remains stable * Patient recommended for outpatient colonoscopy. * Pending stool cultures 3) Transaminitis * Abdominal US completed * LFTS are downtrending * Hepatitis panel: negative 4) Prophylactic Measure * Pepcid 20 mg IV BID * SCDs * IV fluids * start liquids and see if patient tolerates diet.
[2017-02-24] MEDS: Sodium Chloride 0.9% 1,000 ML IV SCH ×3 (07:06→20:00)
[2017-02-24 08:46] LABS: BASO % 0.7 % (0.0-2.0); EOS # 0.1 K/uL (0.0-0.7); EOS % 2.1 % (0.0-4.0); HEMOGLOBIN 12.8 g/dL (12.0-18.0); LYMPH # 1.4 K/uL (1.0-4.3); LYMPH % 21.3 % (20.0-40.0); MEAN CELL VOLUME 80.1 fL (80.0-94.0); MEAN CORPUSCULAR HEMOGLOBIN 27.9 pg (27.0-31.0); MEAN CORPUSCULAR HGB CONC 34.9 g/dL (33.0-37.0); MEAN PLATELET VOLUME 8.6 fL (7.2-11.7); MONO # 0.7 K/uL (0.0-0.8); MONO % 11.6 % (0.0-10.0); NEUT # 4.1 K/uL (1.8-7.0); NEUT % 64.3 % (50.0-75.0); RBC 4.57 Mil/uL (4.40-5.90); RED CELL DISTRIBUTION WIDTH 13.8 % (11.5-14.5); WHITE BLOOD COUNT 6.3 K/uL (4.8-10.8)
[2017-02-24 09:23] LABS: ALB/GLOB RATIO 0.9 (1.0-2.1); ALBUMIN 3.5 g/dL (3.5-5.0); ALT/SGPT 170 U/L (21-72); AST/SGOT 155 U/L (17-59); BLOOD UREA NITROGEN 3 mg/dL (9-20); CALCIUM 8.4 mg/dl (8.6-10.4); GFR AFRICAN-AMERICAN > 60; GFR NON-AFRICAN AMERICAN > 60
--- NOTE | 2017-02-24 09:40 | CP.PCM.PN ---
Subjective - Date & Time of Evaluation Date of Evaluation: 02/24/17 Time of Evaluation: 09:30 - Subjective Subjective: Medical attending Note: Patient seen and examined at bedside. Patient denies abdominal pain, reports 0/10 on pain scale. Patient denies chest pain, denies palpitations, denies nausea, denies vomitting , denies abdominal pain, reports have normal bowel movements, denies BRBPR, denies constipation. Patient is currently on clear liquids. Patient reports he is ready to eat. Patient is on IV fluids, GI ppx, and PRN Morphine. Objective - Vital Signs/Intake and Output Vital Signs (last 24 hours): Temp Pulse Resp BP Pulse Ox 98.6 F 68 20 115/72 98 02/24/17 07:58 02/24/17 07:58 02/24/17 07:58 02/24/17 07:58 02/24/17 07:58 Intake and Output: 02/24/17 02/24/17 06:59 18:59 Intake Total 1400 1400 Balance 1400 1400 - Medications Medications: Current Medications Famotidine (Pepcid) 20 mg IVP Q12 [facility] Last Admin: 02/23/17 21:26 Dose: 20 mg Sodium Chloride (Sodium Chloride 0.9%) 1,000 mls @ 150 mls/hr IV .Q6H40M [facility] Last Admin: 02/24/17 07:06 Dose: 150 mls/hr Lidocaine (Lidoderm) 1 ea TD Q24H [facility] Last Admin: 02/23/17 21:49 Dose: 1 ea - Labs Labs: 02/24/17 08:38 02/24/17 08:38 PT 13.3 SECONDS (9.7-12.2) H 02/20/17 21:49 INR 1.2 02/20/17 21:49 APTT 34 SECONDS (21-34) 02/20/17 21:49 - Constitutional Appears: Non-toxic, No Acute Distress - Head Exam Head Exam: NORMAL INSPECTION - Eye Exam Eye Exam: EOMI - ENT Exam ENT Exam: Mucous Membranes Moist - Respiratory Exam Respiratory Exam: Clear to Ausculation Bilateral, NORMAL BREATHING PATTERN. absent: Rales, Rhonchi, Wheezes - Cardiovascular Exam Cardiovascular Exam: REGULAR RHYTHM, +S1, +S2 - GI/Abdominal Exam GI & Abdominal Exam: Soft, Normal Bowel Sounds. absent: Distended, Firm, Guarding, Rigid, Tenderness, Rebound - Extremities Exam Extremities Exam: absent: Pedal Edema, Tenderness - Neurological Exam Neurological Exam: Alert, Awake, Oriented x3 - Psychiatric Exam Psychiatric exam: Normal Affect, Normal Mood - Skin Skin Exam: Dry, Intact, Normal Color, Warm Assessment and Plan - Assessment and Plan (Free Text) Assessment: Assessment/Plan 1) Acute Pancreatitis * Ransons Criteria: 0 * CT Abd/Pelvis (02/21/16): Acute pancreatitis and small umbilical hernia * Abd US (02/22/16): Fatty Liver; no evidence of cholelithiasis or cholecystitis * Continue with liquid diet * c/w NS 150cc/hr * Lipid Panel - WNL * Morphine 1 mg IV Q6 prn pain. * Note: patient did have rectal exam performed day of admission by ED staff. Patient does not need repeat rectal. * (patient had admit to NSAID, takeout food, weed, and occasional alcohol use) 2) Blood in Stool * Rectal Exam performed in ED. Exam was Normal * H/H is stable * stool occult blood 02/20/17: negative * Stool occult blood 02/21/17: positive * H/H remains stable * Patient recommended for outpatient colonoscopy. 3) Transaminitis * Abdominal US (02/21/17): fatty liver. no evidence of cholelithiasis or cholecystitis * LFTS are worsening. Bilirubin is normal. * Hepatitis panel: negative * Patient is only on Pepcid, IV fluids, and Morphine (last dose 02/22/17). (no hepatotoxic agents noted) * Order for INR * Will consult GI for worsening transaminitis 4) Prophylactic Measure * Pepcid 20 mg IV BID * SCDs * IV fluids * Patient is on clears for past two days.
[2017-02-24 10:19] LABS: LIPASE 703 U/L (23-300)
[2017-02-24] MEDS ORDERED: Potassium Chloride 20 mEq ER Tab PO ONE (10:34)
[2017-02-24 11:28] LABS: INR 1.2; PROTHROMBIN TIME 13.5 SECONDS (9.7-12.2)
--- NOTE | 2017-02-24 11:50 | CP.PCM.CON ---
History of Present Illness - History of Present Illness History of Present Illness: GI service consult: 26 year old man admitted 5 days ago with a 1 week history of intermittent epigastric pain radiating to RUQ. He has Sonogram and CT done as well as labs, all consistent with pancreatitis. Gallstones were not found. patient denies significant alcohol ingestion. He did drink small amounts of alcohol recently during the holiday. While in the hospital his pain has improved and is able to tolerate diet, however his LFTs have been steadily rising. Hepatitis profile is normal. CDiff toxin and stool OB are both negative. Patient denies fevers, chills, malaise, jaundice or prior history of liver disease personally or in his family. Patient had been drinking some herbal tea last week on a daily basis , and he does take Motrin for muscular aches and pains attributed to physical labor, but not on any regular basis. Patient does note fatty food intolerance/ epigastric pains on a chronic basis. Review of Systems - Constitutional Constitutional: Chills. absent: Fever, Weight Loss - Cardiovascular Cardiovascular: absent: Chest Pain - Respiratory Respiratory: absent: Dyspnea - Gastrointestinal Gastrointestinal: Abdominal Pain. absent: Melena - Musculoskeletal Musculoskeletal: Back Pain, Muscle Cramps Past Patient History - Past Medical History & Family History Past Medical History?: Yes - Past Social History Smoking Status: Former Smoker - PULMONARY Hx Asthma: Yes - MUSCULOSKELETAL/RHEUMATOLOGICAL Hx Falls: No - PSYCHIATRIC Hx Substance Use: Yes - SURGICAL HISTORY Hx Surgeries: No - ANESTHESIA Hx Anesthesia: No Meds Allergies/Adverse Reactions: Allergies Allergy/AdvReac Type Severity Reaction Status Date / Time shellfish derived Allergy Verified 02/20/17 19:50 - Medications Medications: Current Medications Famotidine (Pepcid) 20 mg IVP Q12 [facility] Last Admin: 02/24/17 10:27 Dose: 20 mg Sodium Chloride (Sodium Chloride 0.9%) 1,000 mls @ 150 mls/hr IV .Q6H40M [facility] Last Admin: 02/24/17 07:06 Dose: 150 mls/hr Lidocaine (Lidoderm) 1 ea TD Q24H [facility] Last Admin: 02/23/17 21:49 Dose: 1 ea Physical Exam - Constitutional Appears: Well, No Acute Distress - Head Exam Head Exam: NORMOCEPHALIC - Eye Exam Eye Exam: absent: Scleral icterus - ENT Exam ENT Exam: Normal Exam - Neck Exam Neck exam: Negative for: Thyromegaly - Respiratory Exam Respiratory Exam: NORMAL BREATHING PATTERN - Cardiovascular Exam Cardiovascular Exam: REGULAR RHYTHM - GI/Abdominal Exam GI & Abdominal Exam: Soft. absent: Distended, Mass, Organomegaly, Rebound, Tenderness - Rectal Exam Rectal Exam: Deferred - Extremities Exam Extremities exam: Positive for: normal inspection - Neurological Exam Neurological exam: Alert, Oriented x3 Results - Vital Signs Recent Vital Signs: Last Vital Signs Temp 98.6 F 02/24/17 07:58 Pulse 68 02/24/17 07:58 Resp 20 02/24/17 07:58 BP 115/72 02/24/17 07:58 Pulse Ox 98 02/24/17 07:58 - Labs Result Diagrams: 02/24/17 08:38 02/24/17 08:38 Labs: Laboratory Results - last 24 hr 02/24/17 02/24/17 02/24/17 08:38 08:38 11:15 WBC 6.3 RBC 4.57 Hgb 12.8 Hct 36.6 MCV 80.1 MCH 27.9 MCHC 34.9 RDW 13.8 Plt Count 299 MPV 8.6 Neut % (Auto) 64.3 Lymph % (Auto) 21.3 Lynn % (Auto) 11.6 H Eos % (Auto) 2.1 Baso % (Auto) 0.7 Neut # 4.1 Lymph # 1.4 Lynn # 0.7 Eos # 0.1 Baso # 0.0 PT 13.5 H INR 1.2 Sodium 134 Potassium 3.4 L Chloride 104 Carbon Dioxide 25 Anion Gap 9 L BUN 3 L Creatinine 0.8 Est GFR ( Amer) > 60 Est GFR (Non-Af Amer) > 60 Random Glucose 97 Calcium 8.4 L Total Bilirubin 1.2 AST 155 H D ALT 170 H D Alkaline Phosphatase 225 H D Total Protein 7.4 Albumin 3.5 Globulin 3.8 Albumin/Globulin Ratio 0.9 L Lipase 703 H Assessment & Plan (1) Transaminitis Assessment and Plan: Undetermined cause R/O passed gallstones? R/O viral R/O Toxic exposure Rec: Monospot. MRCP. monitor labs Status: Acute (2) Acute pancreatitis Assessment and Plan: Clinically improving Undetermined cause Follow clinically Check labs Status: Acute - Date & Time Date: 02/24/17 Time: 11:54
--- NOTE | 2017-02-24 14:06 | CP.PCM.PN ---
Subjective - Date & Time of Evaluation Date of Evaluation: 02/24/17 Time of Evaluation: 07:00 Objective - Vital Signs/Intake and Output Vital Signs (last 24 hours): Temp Pulse Resp BP Pulse Ox 98.6 F 68 20 115/72 98 02/24/17 07:58 02/24/17 07:58 02/24/17 07:58 02/24/17 07:58 02/24/17 07:58 Intake and Output: 02/24/17 02/24/17 06:59 18:59 Intake Total 1400 1400 Balance 1400 1400 - Medications Medications: Current Medications Famotidine (Pepcid) 20 mg IVP Q12 [facility] Last Admin: 02/24/17 10:27 Dose: 20 mg Sodium Chloride (Sodium Chloride 0.9%) 1,000 mls @ 150 mls/hr IV .Q6H40M [facility] Last Admin: 02/24/17 13:10 Dose: 150 mls/hr Lidocaine (Lidoderm) 1 ea TD Q24H [facility] Last Admin: 02/23/17 21:49 Dose: 1 ea - Labs Labs: 02/24/17 08:38 02/24/17 08:38 PT 13.5 SECONDS (9.7-12.2) H 02/24/17 11:15 INR 1.2 02/24/17 11:15 APTT 34 SECONDS (21-34) 02/20/17 21:49
[2017-02-24] MEDS: Lidocaine 5% Patch TD SCH (22:21)
[2017-02-25] MEDS: Sodium Chloride 0.9% 1,000 ML IV SCH ×4 (03:00→23:43)
--- NOTE | 2017-02-25 09:18 | CP.PCM.PN ---
Subjective - Date & Time of Evaluation Date of Evaluation: 02/25/17 Time of Evaluation: 09:15 - Subjective Subjective: Medical Attending Note: Patient seen and examined at bedside. Patient denies fever, denies chest pain, denies palpitations, reports dry cough , denies abdominal pain, reports occasional burp, reports bowel movements, denies BRBPR, denies constipation. Patient is awaiting MRCP and awaiting blood work results. Patient had a bandage over right upper extremity which was ripped off and mild bleeding. Patient provided number of the [facility] ([phone]) when he is medically stable for discharge. Objective - Vital Signs/Intake and Output Vital Signs (last 24 hours): Temp Pulse Resp BP Pulse Ox 98.4 F 63 20 113/59 L 100 02/25/17 09:06 02/25/17 09:06 02/25/17 09:06 02/25/17 09:06 02/25/17 09:06 Intake and Output: 02/25/17 02/25/17 06:59 18:59 Intake Total 2650 Balance 2650 - Medications Medications: Current Medications Famotidine (Pepcid) 20 mg IVP Q12 [facility] Last Admin: 02/24/17 21:53 Dose: 20 mg Sodium Chloride (Sodium Chloride 0.9%) 1,000 mls @ 150 mls/hr IV .Q6H40M NORA Last Admin: 02/25/17 03:00 Dose: 150 mls/hr Lidocaine (Lidoderm) 1 ea TD Q24H [facility]A Last Admin: 02/24/17 22:21 Dose: 1 ea - Labs Labs: 02/24/17 08:38 02/24/17 08:38 PT 13.5 SECONDS (9.7-12.2) H 02/24/17 11:15 INR 1.2 02/24/17 11:15 APTT 34 SECONDS (21-34) 02/20/17 21:49 - Constitutional Appears: Non-toxic, No Acute Distress - Head Exam Head Exam: NORMAL INSPECTION - Eye Exam Eye Exam: EOMI, PERRL. absent: Scleral icterus - ENT Exam ENT Exam: Mucous Membranes Moist - Respiratory Exam Respiratory Exam: Clear to Ausculation Bilateral, NORMAL BREATHING PATTERN. absent: Rales, Rhonchi, Wheezes, Respiratory Distress - Cardiovascular Exam Cardiovascular Exam: REGULAR RHYTHM, +S1, +S2 - GI/Abdominal Exam GI & Abdominal Exam: Soft, Normal Bowel Sounds. absent: Distended, Firm, Guarding, Rigid, Tenderness, Mass, Rebound - Back Exam Back Exam: absent: paraspinal tenderness - Neurological Exam Neurological Exam: Alert, Awake, Oriented x3 Neuro motor strength exam: Left Upper Extremity: 5, Right Upper Extremity: 5, Left Lower Extremity: 5, Right Lower Extremity: 5 - Skin Skin Exam: Dry, Intact, Normal Color, Warm Additional comments: right upper extremity: bandage Assessment and Plan (1) Acute pancreatitis Status: Acute (2) Transaminitis Status: Acute (3) Positive occult stool blood test Status: Acute (4) Prophylactic measure Status: Acute Attending/Attestation - Attestation I have personally seen and examined this patient.: Yes I have fully participated in the care of the patient.: Yes I have reviewed all pertinent clinical information, including history, physical exam and plan: Yes Notes (Text): Patient seen, examined, and case discussed with medical laboratory manager. Patient seen this morning. Patient denies abdominal pain. He reports flatus and normal bowel movements. Patient is NPO; he is awaiting MRCP, he did not go yet. Awaiting blood work results. Patient reports back pain has resolved. Patient provided number of the [facility] ([phone]) when he is medically stable for discharge. Patient will need work note when he is stable for discharge. Assessment/Plan 1) Acute Pancreatitis * Ransons Criteria: 0 * CT Abd/Pelvis (02/21/16): Acute pancreatitis and small umbilical hernia * Abd US (02/22/16): Fatty Liver; no evidence of cholelithiasis or cholecystitis * NPO for MRCP and Abdomen w/o contrast * c/w NS 150cc/hr * Lipid Panel - WNL * Note: patient did have rectal exam performed day of admission by ED staff. Patient does not need repeat rectal. 2) Blood in Stool * Rectal Exam performed in ED. Exam was Normal * H/H is stable * stool occult blood 02/20/17: negative * Stool occult blood 02/21/17: positive * H/H remains stable * Patient recommended for outpatient colonoscopy. * 02/22/17: No ova and parasiter * 02/22/17: No salmonella, shigella, or campylobacteria 3) Transaminitis * GI (Dr. Esposito) on case-->help appreciated * Abdominal US (02/21/17): fatty liver. No evidence of cholelithiasis or cholecystitis * LFTS pending for this morning * Uptrending 02/24/17 * Hepatitis panel: negative * Hepatitis C viral, CMV, Leisa-Ma, IGG suclass 4 * pending MRCP and Abdomen w/o contrast 4) Prophylactic Measure * Pepcid 20 mg IV BID * SCDs * IV fluids * NPO awaiting MRCP and Abdomen w/o contrast. Disposition: Awaiting blood works from this morning. Awaiting MRCP and Abdomen w /o contrast. When patient is medically stable, patient recommended to follow-up at the [facility] ([phone]). Patient educated about cessation of cannabis and prevent NSAID overuse in light of positive stool occult blood. Patient will need work note when he is medically stable for discharge.
[2017-02-25 09:20] LABS: BASO % 0.6 % (0.0-2.0); EOS # 0.2 K/uL (0.0-0.7); EOS % 3.1 % (0.0-4.0); HEMOGLOBIN 12.3 g/dL (12.0-18.0); LYMPH # 1.2 K/uL (1.0-4.3); LYMPH % 20.2 % (20.0-40.0); MEAN CELL VOLUME 80.6 fL (80.0-94.0); MEAN CORPUSCULAR HEMOGLOBIN 27.6 pg (27.0-31.0); MEAN CORPUSCULAR HGB CONC 34.3 g/dL (33.0-37.0); MEAN PLATELET VOLUME 8.4 fL (7.2-11.7); MONO # 0.7 K/uL (0.0-0.8); MONO % 11.1 % (0.0-10.0); NEUT # 3.9 K/uL (1.8-7.0); NRBC % 0.1 % (0.0-2.0); RBC 4.46 Mil/uL (4.40-5.90); RED CELL DISTRIBUTION WIDTH 13.6 % (11.5-14.5)
[2017-02-25 09:39] LABS: ALB/GLOB RATIO 0.9 (1.0-2.1); ALBUMIN 3.4 g/dL (3.5-5.0); ALT/SGPT 176 U/L (21-72); AST/SGOT 149 U/L (17-59); BILIRUBIN,DIRECT 0.4 mg/dL (0.0-0.4); BLOOD UREA NITROGEN 4 mg/dL (9-20); CALCIUM 8.5 mg/dl (8.6-10.4); GFR AFRICAN-AMERICAN > 60; GFR NON-AFRICAN AMERICAN > 60; LIPASE 498 U/L (23-300); MAGNESIUM 1.8 mg/dL (1.6-2.3)
[2017-02-25] MEDS ORDERED: Vitamins A & D Oint UD Foilpak TOP PRN (14:09)
[2017-02-25] MEDS ORDERED: Vitamins A & D Oint UD Foilpak TOP SCH (16:00)
[2017-02-25] MEDS: Lidocaine 5% Patch TD SCH (21:37)
[2017-02-26] MEDS: Sodium Chloride 0.9% 1,000 ML IV SCH ×3 (06:27→14:38)
[2017-02-26 08:38] VITALS: RESP 20
[2017-02-26 08:40] LABS: BASO % 0.4 % (0.0-2.0); EOS # 0.1 K/uL (0.0-0.7); EOS % 1.8 % (0.0-4.0); HEMOGLOBIN 12.3 g/dL (12.0-18.0); LYMPH % 13.7 % (20.0-40.0); MEAN CELL VOLUME 79.7 fL (80.0-94.0); MEAN CORPUSCULAR HEMOGLOBIN 27.2 pg (27.0-31.0); MEAN CORPUSCULAR HGB CONC 34.2 g/dL (33.0-37.0); MEAN PLATELET VOLUME 8.7 fL (7.2-11.7); MONO # 0.6 K/uL (0.0-0.8); MONO % 8.3 % (0.0-10.0); NEUT # 5.7 K/uL (1.8-7.0); NEUT % 75.8 % (50.0-75.0); RBC 4.53 Mil/uL (4.40-5.90); RED CELL DISTRIBUTION WIDTH 14.1 % (11.5-14.5); WHITE BLOOD COUNT 7.5 K/uL (4.8-10.8)
[2017-02-26 08:59] LABS: ALBUMIN 3.6 g/dL (3.5-5.0); ALT/SGPT 147 U/L (21-72); AST/SGOT 75 U/L (17-59); BLOOD UREA NITROGEN 6 mg/dL (9-20); CALCIUM 8.6 mg/dl (8.6-10.4); GFR AFRICAN-AMERICAN > 60; GFR NON-AFRICAN AMERICAN > 60
--- NOTE | 2017-02-26 10:03 | CP.PCM.PN ---
Subjective - Date & Time of Evaluation Date of Evaluation: 02/26/17 Time of Evaluation: 09:45 - Subjective Subjective: Hospitalist Progress Note Patient was seen and examined at 9:45 AM 02/26/17 Bed 368A. Currently upon FULL ROS: Episode of RUQ/Epigastric pain yesterday 02/25/17 but is not experiencing at this time Had bowel movement yesterday 02/25/17 small amount and soft NO burning/pain with urination NO chest pain NO SOB NO n/v NO headache NO new changes in vision NO new changes in hearing NO Parestthesias NO edema Exam: General: He was asleep but easily arousable. He is in NO apparent distress. He is alert and oriented HEENT: NCA, PERRLA, EOMI, NO pharyngeal erythema/exudate, NO lymphadenopathy, NO thyromegaly, Nasal Turbinates are nonerythematous/nonedematous Cardio: NS1 and NS2, NO M/R/G Resp: CTA B/L, NO R/R/W GI: BSx4, Soft, NT, ND, NO HSM, NO guarding/rebound tenderness Ext: Pulses are strong and equal, Capillary Refill is 2 seconds, Pulses are strong and equal Neuro: CN II through XII are grossly intact Assessment/Plan 1) Acute Pancreatitis * Ransons Criteria: 0 * CT Abd/Pelvis (02/21/16): Acute pancreatitis and small umbilical hernia * Abd US (02/22/16): Fatty Liver; no evidence of cholelithiasis or cholecystitis * NPO for MRCP and Abdomen w/o contrast which was performed this morning 02/26/17 * c/w NS 150cc/hr * Lipid Panel - WNL * Note: patient did have rectal exam performed day of admission by ED staff. Patient does not need repeat rectal. 2) Blood in Stool * Rectal Exam performed in ED. Exam was Normal * H/H is stable * stool occult blood 02/20/17: negative * Stool occult blood 02/21/17: positive * H/H remains stable * Patient recommended for outpatient colonoscopy. * 02/22/17: No ova and parasiter * 02/22/17: No salmonella, shigella, or campylobacteria 3) Transaminitis * GI (Dr. Esposito) on case-->help appreciated * Abdominal US (02/21/17): fatty liver. No evidence of cholelithiasis or cholecystitis * LFTS pending for this morning * Uptrending 02/24/17 * Hepatitis panel: negative * Hepatitis C viral, CMV, Leisa-Ma, IGG suclass 4 * pending MRCP and Abdomen w/o contrast report 4) Prophylactic Measure * Pepcid 20 mg IV BID * SCDs * IV fluids * NPO for now until results of MRCP and if no issues then will restart clear liquid diet. 02/25/17: Awaiting MRCP and Abdomen w/o contrast. When patient is medically stable , patient recommended to follow-up at the [facility] ). Patient educated about cessation of cannabis and prevent NSAID overuse in light of positive stool occult blood. Patient will need work note when he is medically stable for discharge. 02/26/17: Awaiting MRCP report and if no issues then will discharge patient and have him continue Clear Liquid Diet and advance as tolerated. He will need to follow up with [facility] ([phone]) and through them obtain Colonoscopy and further coordination of his care. Work Note will be provided for the length of time patient was admitted to hospital. Objective - Vital Signs/Intake and Output Vital Signs (last 24 hours): Temp Pulse Resp BP Pulse Ox 98.2 F 61 20 125/72 97 02/26/17 08:36 02/26/17 08:36 02/26/17 08:36 02/26/17 08:36 02/26/17 08:36 Intake and Output: 02/26/17 02/26/17 06:59 18:59 Intake Total 2400 Balance 2400 - Medications Medications: Current Medications Famotidine (Pepcid) 20 mg IVP Q12 [facility] Last Admin: 02/25/17 21:38 Dose: 20 mg Sodium Chloride (Sodium Chloride 0.9%) 1,000 mls @ 150 mls/hr IV .Q6H40M [facility] Last Admin: 02/26/17 06:28 Dose: Not Given Lidocaine (Lidoderm) 1 ea TD Q24H [facility] Last Admin: 02/25/17 21:37 Dose: 1 ea Vitamin A (Vitamin A & D Oint Ud Foilpak) 0.5 ea TOP Q4 PRN PRN Reason: dry skin - Labs Labs: 02/26/17 08:30 02/26/17 08:30 PT 13.5 SECONDS (9.7-12.2) H 02/24/17 11:15 INR 1.2 02/24/17 11:15 APTT 34 SECONDS (21-34) 02/20/17 21:49
--- NOTE | 2017-02-26 11:20 | MRI ---
MRCP Indication: Pancreatitis, abnormal LFTs Technique: Multiplanar, multisequence MR images of the abdomen were obtained, including heavily T2 weighted MRCP images of the biliary system. Rotating maximum intensity projection images of the biliary system were generated. A total of 673 images were submitted for review. Comparison: None available. Findings: The gallbladder appears unremarkable. There is no intrahepatic biliary ductal dilatation. The common bile duct is not well visualized however does not appear dilated. The pancreatic duct appears within normal limits of caliber. No filling defects are seen in the common bile duct or pancreatic duct. Pancreatic prominence likely related to acute pancreatitis ; correlate clinically including amylase and lipase. The imaged portions of the noncontrast liver, adrenal glands, kidneys, and spleen appear unremarkable. No bulky abdominal lymphadenopathy is seen. No ascites. No acute osseous abnormality is detected. Impression: Evidence of pancreatic prominence likely related to pancreatitis; correlate clinically including amylase and lipase. The common bile duct is not well visualized however does not appear dilated.
[2017-02-26 16:14] VITALS: BP 126/77; PULSE 89; TEMP 98.8; O2SAT 98
--- NOTE | 2017-02-26 17:53 | CP.PCM.DIS ---
<PanchojudyCorine - Last Filed: 02/26/17 19:55> Provider - Provider Date of Admission: 02/21/17 00:20 Attending physician: John Perez MD Consults: GI - Dr. Mendoza/Dr. Esposito. Time Spent in preparation of Discharge (in minutes): 40 Hospital Course - Lab Results Lab Results: Micro Results 02/22/17 07:47 Stool Stool Culture - Final NO SALMONELLA, SHIGELLA OR CAMPYLOBACTER ISOLATED. 02/22/17 07:47 Bowel Ova and Parasite Concentrate Exam - Final Most Recent Lab Values WBC 7.5 K/uL (4.8-10.8) 02/26/17 08:30 RBC 4.53 Mil/uL (4.40-5.90) 02/26/17 08:30 Hgb 12.3 g/dL (12.0-18.0) 02/26/17 08:30 Hct 36.1 % (35.0-51.0) 02/26/17 08:30 MCV 79.7 fL (80.0-94.0) L 02/26/17 08:30 MCH 27.2 pg (27.0-31.0) 02/26/17 08:30 MCHC 34.2 g/dL (33.0-37.0) 02/26/17 08:30 RDW 14.1 % (11.5-14.5) 02/26/17 08:30 Plt Count 314 K/uL (130-400) 02/26/17 08:30 MPV 8.7 fL (7.2-11.7) 02/26/17 08:30 Neut % (Auto) 75.8 % (50.0-75.0) H 02/26/17 08:30 Lymph % (Auto) 13.7 % (20.0-40.0) L 02/26/17 08:30 [place] % (Auto) 8.3 % (0.0-10.0) 02/26/17 08:30 Eos % (Auto) 1.8 % (0.0-4.0) 02/26/17 08:30 Baso % (Auto) 0.4 % (0.0-2.0) 02/26/17 08:30 Neut # 5.7 K/uL (1.8-7.0) 02/26/17 08:30 Lymph # 1.0 K/uL (1.0-4.3) 02/26/17 08:30 [place] # 0.6 K/uL (0.0-0.8) 02/26/17 08:30 Eos # 0.1 K/uL (0.0-0.7) 02/26/17 08:30 Baso # 0.0 K/uL (0.0-0.2) 02/26/17 08:30 PT 13.5 SECONDS (9.7-12.2) H 02/24/17 11:15 INR 1.2 02/24/17 11:15 APTT 34 SECONDS (21-34) 02/20/17 21:49 Sodium 134 mmol/L (132-148) 02/26/17 08:30 Potassium 4.3 mmol/L (3.6-5.2) 02/26/17 08:30 Chloride 100 mmol/L (98-107) 02/26/17 08:30 Carbon Dioxide 26 mmol/L (22-30) 02/26/17 08:30 Anion Gap 12 (10-20) 02/26/17 08:30 BUN 6 mg/dL (9-20) L 02/26/17 08:30 Creatinine 0.9 mg/dL (0.8-1.5) 02/26/17 08:30 Est GFR ( Amer) > 60 02/26/17 08:30 Est GFR (Non-Af Amer) > 60 02/26/17 08:30 Random Glucose 74 mg/dL (75-110) L 02/26/17 08:30 Hemoglobin A1c 5.6 % (4.2-6.5) 02/22/17 07:39 Calcium 8.6 mg/dl (8.6-10.4) 02/26/17 08:30 Phosphorus 3.1 mg/dL (2.5-4.5) 02/25/17 09:12 Magnesium 1.8 mg/dL (1.6-2.3) 02/25/17 09:12 Total Bilirubin 1.2 mg/dL (0.2-1.3) 02/26/17 08:30 Direct Bilirubin 0.4 mg/dL (0.0-0.4) 01/07/18 09:12 AST 75 U/L (17-59) H D 02/26/17 08:30 ALT 147 U/L (21-72) H 02/26/17 08:30 Alkaline Phosphatase 239 U/L (38-126) H 02/26/17 08:30 Total Protein 7.2 g/dL (6.3-8.3) 02/26/17 08:30 Albumin 3.6 g/dL (3.5-5.0) 02/26/17 08:30 Globulin 3.6 gm/dL (2.2-3.9) 02/26/17 08:30 Albumin/Globulin Ratio 1.0 (1.0-2.1) 02/26/17 08:30 Triglycerides 95 mg/dL (0-149) 02/21/17 09:19 Cholesterol 178 mg/dL (0-199) 02/21/17 09:19 LDL Cholesterol Direct 112 mg/dL (0-129) 02/21/17 09:19 HDL Cholesterol 30 mg/dL (30-70) 02/21/17 09:19 Lipase 498 U/L (23-300) H 02/25/17 09:12 Urine Color Yellow (YELLOW) 02/21/17 22:23 Urine Clarity Clear (Clear) 02/21/17 22:23 Urine pH 5.0 (5.0-8.0) 02/21/17 22:23 Ur Specific [place] 1.046 (1.003-1.030) H 02/21/17 22:23 Urine Protein 2+ mg/dL (NEGATIVE) H 02/21/17 22:23 Urine Glucose (UA) 1+ mg/dL (Normal) H 02/21/17 22:23 Urine Ketones 1+ mg/dL (NEGATIVE) H 02/21/17 22:23 Urine Blood Negative (NEGATIVE) 02/21/17 22:23 Urine Nitrate Negative (NEGATIVE) 02/21/17 22:23 Urine Bilirubin Negative (NEGATIVE) 02/21/17 22:23 Urine Urobilinogen Normal mg/dL (0.2-1.0) 02/21/17 22:23 Ur Leukocyte Esterase Neg [place]/uL (Negative) 02/21/17 22:23 Urine WBC (Auto) 4 /hpf (0-5) 02/21/17 22:23 Urine RBC (Auto) 2 /hpf (0-3) 02/21/17 22:23 Stool Occult Blood Positive (NEGATIVE) H 02/22/17 08:43 Alcohol, Quantitative < 10 mg/dl (0-10) 02/21/17 09:19 ZARINA 6 Profile Negative (NEGATIVE) 02/25/17 09:12 C. difficile Ag & Toxin Negative (NEGATIVE) 02/21/17 23:24 Hepatitis A IgM Ab Negative (NEGATIVE) 02/21/17 09:19 Hep Bs Antigen Negative (NEGATIVE) 02/21/17 09:19 Hep B Core IgM Ab Negative (NEGATIVE) 02/21/17 09:19 Hepatitis C Antibody Negative (NEGATIVE) 02/21/17 09:19 - Hospital Course Hospital Course: Patient is stable for discharge. LFT's are downtrending. Relevant studies and followup plan are below. Patient will need to follow up at [facility] for repeat LFT's, colonoscopy referral, and to follow up on PENDING labs including Hepatitis C viral, CMV, Leisa-Ma, and IGG suclass 4. Patient is agreeable to plan. MRCP: Evidence of pancreatic prominence likely related to pancreatitis; correlate clinically including amylase and lipase. The common bile duct is not well visualized however does not appear dilated. Patient was seen and examined at 9:45 AM 02/26/17 Bed 368A. Currently upon FULL ROS: Episode of RUQ/Epigastric pain yesterday 02/25/17 but is not experiencing at this time Had bowel movement yesterday 02/25/17 small amount and soft NO burning/pain with urination NO chest pain NO SOB NO n/v NO headache NO new changes in vision NO new changes in hearing NO Parestthesias NO edema Exam: General: He was asleep but easily arousable. He is in NO apparent distress. He is alert and oriented HEENT: NCA, PERRLA, EOMI, NO pharyngeal erythema/exudate, NO lymphadenopathy, NO thyromegaly, Nasal Turbinates are nonerythematous/nonedematous Cardio: NS1 and NS2, NO M/R/G Resp: CTA B/L, NO R/R/W GI: BSx4, Soft, NT, ND, NO HSM, NO guarding/rebound tenderness Ext: Pulses are strong and equal, Capillary Refill is 2 seconds, Pulses are strong and equal Neuro: CN II through XII are grossly intact Assessment/Plan 1) Acute Pancreatitis * Ransons Criteria: 0 * CT Abd/Pelvis (02/21/16): Acute pancreatitis and small umbilical hernia * Abd US (02/22/16): Fatty Liver; no evidence of cholelithiasis or cholecystitis * NPO for MRCP and Abdomen w/o contrast which was performed this morning 02/26/17 * c/w NS 150cc/hr * Lipid Panel - WNL * Note: patient did have rectal exam performed day of admission by ED staff. Patient does not need repeat rectal. 2) Blood in Stool * Rectal Exam performed in ED. Exam was Normal * H/H is stable * stool occult blood 02/20/17: negative * Stool occult blood 02/21/17: positive * H/H remains stable * Patient recommended for outpatient colonoscopy. * 02/22/17: No ova and parasite * 02/22/17: No salmonella, shigella, or campylobacteria 3) Transaminitis * GI (Dr. Esposito) on case-->help appreciated * Abdominal US (02/21/17): fatty liver. No evidence of cholelithiasis or cholecystitis * LFTS pending for this morning * Uptrending 02/24/17 * Hepatitis panel: negative * Hepatitis C viral, CMV, Leisa-Ma, IGG suclass 4 * pending MRCP and Abdomen w/o contrast report 4) Prophylactic Measure * Pepcid 20 mg IV BID * SCDs * IV fluids * NPO for now until results of MRCP and if no issues then will restart clear liquid diet. 02/25/17: Patient educated about cessation of cannabis and prevent NSAID overuse in light of positive stool occult blood. Patient will need work note when he is medically stable for discharge. 02/26/17: MRCP NEGATIVE. Will discharge patient and have him continue Clear Liquid Diet and advance as tolerated. He will need to follow up with [facility] ([phone]) and through them obtain Colonoscopy and further coordination of his care. Work Note will be provided for the length of time patient was admitted to hospital. - Date & Time of H&P Date of H&P: 02/26/17 Time of H&P: 09:45 Discharge Exam - Head Exam Head Exam: ATRAUMATIC, NORMAL INSPECTION, NORMOCEPHALIC - Eye Exam Eye Exam: EOMI, Normal appearance - ENT Exam ENT Exam: Mucous Membranes Moist - Respiratory Exam Respiratory Exam: Clear to PA & Lateral. absent: Rales, Rhonchi, Wheezes - Cardiovascular Exam Cardiovascular Exam: RRR, +S1, +S2 - GI/Abdominal Exam GI & Abdominal Exam: Hyperactive Bowel Sounds, Soft. absent: Bruit, Distended, Firm, Organomegaly, Rebound, Rigid, Tenderness - Extremities Exam Extremities exam: normal capillary refill, normal inspection - Neurological Exam Neurological exam: Alert, Oriented x3 - Psychiatric Exam Psychiatric exam: Normal Affect, Normal Mood - Skin Skin Exam: Dry, Intact, Normal Color, Warm Discharge Plan - Follow Up Plan Condition: FAIR Disposition: HOME/ ROUTINE Instructions: Pancreatitis (DC) Additional Instructions: Please advance your diet slowly: Liquid Diet for the first 24 hours after discharge, then soft diet for the next 24 hours. After that, you may advanced your diet slowly and as tolerated. Remember to drink plenty of fluids. Please follow up with your primary medical physician. If you have none, you may follow up at our [facility] in the [facility]. The number is . At this appointment you may get referral for an outpatient colonoscopy. At this visit, you will also get repeat labs to check your liver enzymes, and to follow up on the pending labs you had during your stay at the hospital. If your symptoms return or worsen, then return to emergency department. Referrals: at [facility] [Outside] <John Perez - Last Filed: 02/26/17 20:26> Provider - Provider Date of Admission: 02/21/17 00:20 Attending physician: John Perez MD Hospital Course - Lab Results Lab Results: Micro Results 02/22/17 07:47 Stool Stool Culture - Final NO SALMONELLA, SHIGELLA OR CAMPYLOBACTER ISOLATED. 02/22/17 07:47 Bowel Ova and Parasite Concentrate Exam - Final Most Recent Lab Values WBC 7.5 K/uL (4.8-10.8) 02/26/17 08:30 RBC 4.53 Mil/uL (4.40-5.90) 02/26/17 08:30 Hgb 12.3 g/dL (12.0-18.0) 02/26/17 08:30 Hct 36.1 % (35.0-51.0) 02/26/17 08:30 MCV 79.7 fL (80.0-94.0) L 02/26/17 08:30 MCH 27.2 pg (27.0-31.0) 02/26/17 08:30 MCHC 34.2 g/dL (33.0-37.0) 02/26/17 08:30 RDW 14.1 % (11.5-14.5) 02/26/17 08:30 Plt Count 314 K/uL (130-400) 02/26/17 08:30 MPV 8.7 fL (7.2-11.7) 02/26/17 08:30 Neut % (Auto) 75.8 % (50.0-75.0) H 02/26/17 08:30 Lymph % (Auto) 13.7 % (20.0-40.0) L 02/26/17 08:30 [place] % (Auto) 8.3 % (0.0-10.0) 02/26/17 08:30 Eos % (Auto) 1.8 % (0.0-4.0) 02/26/17 08:30 Baso % (Auto) 0.4 % (0.0-2.0) 02/26/17 08:30 Neut # 5.7 K/uL (1.8-7.0) 02/26/17 08:30 Lymph # 1.0 K/uL (1.0-4.3) 02/26/17 08:30 [place] # 0.6 K/uL (0.0-0.8) 02/26/17 08:30 Eos # 0.1 K/uL (0.0-0.7) 02/26/17 08:30 Baso # 0.0 K/uL (0.0-0.2) 02/26/17 08:30 PT 13.5 SECONDS (9.7-12.2) H 02/24/17 11:15 INR 1.2 02/24/17 11:15 APTT 34 SECONDS (21-34) 02/20/17 21:49 Sodium 134 mmol/L (132-148) 02/26/17 08:30 Potassium 4.3 mmol/L (3.6-5.2) 01/08/18 08:30 Chloride 100 mmol/L (98-107) 02/26/17 08:30 Carbon Dioxide 26 mmol/L (22-30) 02/26/17 08:30 Anion Gap 12 (10-20) 02/26/17 08:30 BUN 6 mg/dL (9-20) L 02/26/17 08:30 Creatinine 0.9 mg/dL (0.8-1.5) 02/26/17 08:30 Est GFR ( Amer) > 60 02/26/17 08:30 Est GFR (Non-Af Amer) > 60 02/26/17 08:30 Random Glucose 74 mg/dL (75-110) L 02/26/17 08:30 Hemoglobin A1c 5.6 % (4.2-6.5) 02/22/17 07:39 Calcium 8.6 mg/dl (8.6-10.4) 02/26/17 08:30 Phosphorus 3.1 mg/dL (2.5-4.5) 02/25/17 09:12 Magnesium 1.8 mg/dL (1.6-2.3) 02/25/17 09:12 Total Bilirubin 1.2 mg/dL (0.2-1.3) 02/26/17 08:30 Direct Bilirubin 0.4 mg/dL (0.0-0.4) 02/25/17 09:12 AST 75 U/L (17-59) H D 02/26/17 08:30 ALT 147 U/L (21-72) H 02/26/17 08:30 Alkaline Phosphatase 239 U/L (38-126) H 02/26/17 08:30 Total Protein 7.2 g/dL (6.3-8.3) 02/26/17 08:30 Albumin 3.6 g/dL (3.5-5.0) 02/26/17 08:30 Globulin 3.6 gm/dL (2.2-3.9) 02/26/17 08:30 Albumin/Globulin Ratio 1.0 (1.0-2.1) 02/26/17 08:30 Triglycerides 95 mg/dL (0-149) 02/21/17 09:19 Cholesterol 178 mg/dL (0-199) 02/21/17 09:19 LDL Cholesterol Direct 112 mg/dL (0-129) 02/21/17 09:19 HDL Cholesterol 30 mg/dL (30-70) 02/21/17 09:19 Lipase 498 U/L (23-300) H 02/25/17 09:12 Urine Color Yellow (YELLOW) 02/21/17 22:23 Urine Clarity Clear (Clear) 02/21/17 22:23 Urine pH 5.0 (5.0-8.0) 02/21/17 22:23 Ur Specific [place] 1.046 (1.003-1.030) H 02/21/17 22:23 Urine Protein 2+ mg/dL (NEGATIVE) H 02/21/17 22:23 Urine Glucose (UA) 1+ mg/dL (Normal) H 02/21/17 22:23 Urine Ketones 1+ mg/dL (NEGATIVE) H 02/21/17 22:23 Urine Blood Negative (NEGATIVE) 02/21/17 22:23 Urine Nitrate Negative (NEGATIVE) 02/21/17 22:23 Urine Bilirubin Negative (NEGATIVE) 02/21/17 22:23 Urine Urobilinogen Normal mg/dL (0.2-1.0) 02/21/17 22:23 Ur Leukocyte Esterase Neg [place]/uL (Negative) 02/21/17 22:23 Urine WBC (Auto) 4 /hpf (0-5) 02/21/17 22:23 Urine RBC (Auto) 2 /hpf (0-3) 02/21/17 22:23 Stool Occult Blood Positive (NEGATIVE) H 02/22/17 08:43 Alcohol, Quantitative < 10 mg/dl (0-10) 02/21/17 09:19 ZARINA 6 Profile Negative (NEGATIVE) 02/25/17 09:12 C. difficile Ag & Toxin Negative (NEGATIVE) 02/21/17 23:24 Hepatitis A IgM Ab Negative (NEGATIVE) 02/21/17 09:19 Hep Bs Antigen Negative (NEGATIVE) 02/21/17 09:19 Hep B Core IgM Ab Negative (NEGATIVE) 02/21/17 09:19 Hepatitis C Antibody Negative (NEGATIVE) 02/21/17 09:19 Attending/Attestation - Attestation I have personally seen and examined this patient.: Yes I have fully participated in the care of the patient.: Yes I have reviewed all pertinent clinical information, including history, physical exam and plan: Yes
== END 2017-02-26 20:14 | disposition home or self-care (01) | DRG 204 ==
LOC: C.ER 19:24 → C.3T 02-21 00:20
PROVIDERS: ADMIT Family Medicine; ATTEND Family Medicine
DX: K85.90 Acute pancreatitis without necrosis or infection, unspecified (principal); K76.0 Fatty (change of) liver, not elsewhere classified; L97.509 Non-pressure chronic ulcer of other part of unspecified foot with unspecified severity; K92.1 Melena; F12.90 Cannabis use, unspecified, uncomplicated; J45.909 Unspecified asthma, uncomplicated; K59.00 Constipation, unspecified; R74.0 Nonspecific elevation of levels of transaminase and lactic acid dehydrogenase [LDH]; Z91.013 Allergy to seafood; Z87.891 Personal history of nicotine dependence